=== PATIENT | male | born 1965 | race Caucasian/White ===

== ENCOUNTER 2021-11-02 14:05 | Inpatient (IN) | payer OTHER ==
[2021-11-02 14:24] VITALS: BMI 28.4
[2021-11-02] MEDS ORDERED: BETAMETHASONE DIPR 0.05% CREAM 15 GM TUBE TP SCH (15:00)
[2021-11-02] MEDS ORDERED: MAGNESIUM HYDROX 2400MG/30ML ORAL SUSPENSION 30 ML CUP PO PRN (15:01)
[2021-11-02] MEDS ORDERED: ACETAMINOPHEN 325 MG TABLET (FP) PO PRN (15:01)
[2021-11-02] MEDS ORDERED: IBUPROFEN 600 MG TABLET (FP) PO PRN (15:01)
[2021-11-02] MEDS ORDERED: BISMUTH SUBSALICYLATE 524 MG/30 ML PO PRN (15:01)
[2021-11-02] MEDS ORDERED: BENZOCAINE/MENTHOL (CHLORASEPTIC ) LOZENGE MM PRN (15:01)
[2021-11-02] MEDS ORDERED: LOPERAMIDE HCL 2 MG CAPSULE PO PRN (15:01)
[2021-11-02] MEDS ORDERED: ONDANSETRON *ODT* 4 MG TABLET SL PRN (15:01)
[2021-11-02] MEDS ORDERED: MAGNESIUM CITRATE 300 ML BOTTLE PO PRN (15:01)
[2021-11-02] MEDS ORDERED: MAG HYDROX/AL HYDROX/SIMETH 30 ML UNIT-DOSE CUP PO PRN (15:01)
[2021-11-02] MEDS ORDERED: DICYCLOMINE HCL 10 MG CAPSULE PO PRN (15:01)
[2021-11-02] MEDS ORDERED: methaDONE HCL 10 MG TABLET (FOR DETOX USE ONLY) PO ONE ×2 (15:05→19:30)
[2021-11-02] MEDS: METHOCARBAMOL 500 MG TABLET PO PRN (19:51)
[2021-11-02] MEDS: hydrOXYzine PAMOATE 25 MG CAPSULE (FP) PO PRN ×2 (19:51→22:34)
[2021-11-02] MEDS: cloNIDine HCL 0.1 MG TABLET PO PRN (19:51)
[2021-11-02] MEDS: MELATONIN 5 MG TABLETS PO PRN (22:34)
[2021-11-02] MEDS: THIAMINE HCL 100 MG TABLET (FP) PO SCH (22:34)
[2021-11-02] MEDS: BETAMETHASONE DIPR 0.05% CREAM 15 GM TUBE TP SCH (23:45)
[2021-11-02] MEDS: SALICYLIC ACID/SULFUR 1 APPLIC SHAMPOO.G. TP SCH (23:46)
[2021-11-03] MEDS: CHOLECALCIFEROL (VIT D3) 1,000 UNIT (25 MCG) TABLET PO SCH ×2 (00:10→10:19)
[2021-11-03] MEDS ORDERED: methaDONE HCL 10 MG TABLET (FOR DETOX USE ONLY) ONE (09:40)
[2021-11-03] MEDS: METHOCARBAMOL 500 MG TABLET PO PRN ×2 (10:18→18:26)
[2021-11-03] MEDS: hydrOXYzine PAMOATE 25 MG CAPSULE (FP) PO PRN ×2 (10:18→18:24)
[2021-11-03] MEDS: PRENATAL VITAMINS W/ FOLIC ACID TABLET (FP) PO SCH (10:18)
[2021-11-03] MEDS: BETAMETHASONE DIPR 0.05% CREAM 15 GM TUBE TP SCH ×2 (10:20→14:13)
[2021-11-03] MEDS: SALICYLIC ACID/SULFUR 1 APPLIC SHAMPOO.G. TP SCH (10:21)
[2021-11-03 11:56] LABS: HEMATOCRIT 43.2 % (35.4-49); HEMOGLOBIN 14.3 GM/dL (11.7-16.9); MCH 27.3 pg (25.7-33.7); MCHC 33.1 g/dl (32.0-35.9); MEAN CELL VOLUME 82.3 fl (80-96); PLATELET COUNT 195 10^3/uL (134-434); RBC 5.25 M/mm3 (4.00-5.60); RDW 14.1 % (11.9-15.9); WHITE BLOOD COUNT 6.3 K/mm3 (4.0-10.0)
[2021-11-03 11:59] LABS: CALCIUM 8.7 mg/dL (8.5-10.1)
[2021-11-03 12:00] LABS: ALBUMIN 3.3 g/dl (3.4-5.0); BLOOD UREA NITROGEN 18.2 mg/dL (7-18)
[2021-11-03 12:03] LABS: CREATININE 0.9 mg/dL (0.55-1.3)
[2021-11-03 12:04] LABS: TOT PROT 6.3 g/dl (6.4-8.2)
[2021-11-03 12:05] LABS: BILIRUBIN,TOTAL 0.3 mg/dL (0.2-1)
[2021-11-03] MEDS: IBUPROFEN 400 MG TABLET (FP) PO PRN ×2 (18:24→22:43)
[2021-11-03] MEDS: cloNIDine HCL 0.1 MG TABLET PO PRN ×2 (18:24→22:43)
[2021-11-03] MEDS: MELATONIN 5 MG TABLETS PO PRN (22:43)
[2021-11-03] MEDS: THIAMINE HCL 100 MG TABLET (FP) PO SCH (22:43)
[2021-11-04] MEDS: BETAMETHASONE DIPR 0.05% CREAM 15 GM TUBE TP SCH ×6 (00:41→22:34)
[2021-11-04] MEDS ORDERED: methaDONE HCL 10 MG TABLET (FOR DETOX USE ONLY) PO ONE (10:00)
[2021-11-04] MEDS: SALICYLIC ACID/SULFUR 1 APPLIC SHAMPOO.G. TP SCH (10:11)
[2021-11-04] MEDS: PRENATAL VITAMINS W/ FOLIC ACID TABLET (FP) PO SCH (10:12)
[2021-11-04] MEDS: HYDROCHLOROTHIAZIDE 12.5 MG CAPSULE (FP) PO SCH (10:12)
[2021-11-04] MEDS: amLODIPine BESYLATE 10 MG TABLET (FP) PO SCH (10:12)
[2021-11-04] MEDS: cloNIDine HCL 0.1 MG TABLET PO PRN (12:56)
[2021-11-04] MEDS: CHOLECALCIFEROL (VIT D3) 1,000 UNIT (25 MCG) TABLET PO SCH (14:25)
[2021-11-04] MEDS: METHOCARBAMOL 500 MG TABLET PO PRN (17:49)
[2021-11-04] MEDS: hydrOXYzine PAMOATE 25 MG CAPSULE (FP) PO PRN ×2 (17:49→22:34)
[2021-11-04] MEDS ORDERED: LOSARTAN POTASSIUM 50 MG TABLET PO ONE (22:00)
[2021-11-04] MEDS: THIAMINE HCL 100 MG TABLET (FP) PO SCH (22:34)
[2021-11-05] MEDS ORDERED: methaDONE HCL 10 MG TABLET (FOR DETOX USE ONLY) ONE (09:33)
[2021-11-05] MEDS: PRENATAL VITAMINS W/ FOLIC ACID TABLET (FP) PO SCH (10:03)
[2021-11-05] MEDS: hydrOXYzine PAMOATE 25 MG CAPSULE (FP) PO PRN ×3 (10:03→22:06)
[2021-11-05] MEDS: CHOLECALCIFEROL (VIT D3) 1,000 UNIT (25 MCG) TABLET PO SCH (10:03)
[2021-11-05] MEDS: amLODIPine BESYLATE 10 MG TABLET (FP) PO SCH (10:03)
[2021-11-05] MEDS: BETAMETHASONE DIPR 0.05% CREAM 15 GM TUBE TP SCH ×4 (10:04→22:06)
[2021-11-05] MEDS: METHOCARBAMOL 500 MG TABLET PO PRN ×2 (10:04→22:06)
[2021-11-05] MEDS: LOSARTAN POTASSIUM 50 MG TABLET PO SCH (10:04)
[2021-11-05] MEDS: SALICYLIC ACID/SULFUR 1 APPLIC SHAMPOO.G. TP SCH (10:28)
[2021-11-05] MEDS: HYDROCHLOROTHIAZIDE 12.5 MG CAPSULE (FP) PO SCH (10:39)
[2021-11-05] MEDS ORDERED: LISINOPRIL 10 MG TABLET PO ONE (15:15)
[2021-11-05] MEDS: ACETAMINOPHEN 325 MG TABLET (FP) PO PRN (18:04)
[2021-11-05] MEDS: THIAMINE HCL 100 MG TABLET (FP) PO SCH (22:06)
[2021-11-06] MEDS ORDERED: methaDONE HCL 10 MG TABLET (FOR DETOX USE ONLY) PO ONE (10:00)
[2021-11-06] MEDS: CHOLECALCIFEROL (VIT D3) 1,000 UNIT (25 MCG) TABLET PO SCH (10:18)
[2021-11-06] MEDS: METHOCARBAMOL 500 MG TABLET PO PRN (10:18)
[2021-11-06] MEDS: LOSARTAN POTASSIUM 50 MG TABLET PO SCH (10:18)
[2021-11-06] MEDS: hydrOXYzine PAMOATE 25 MG CAPSULE (FP) PO PRN (10:18)
[2021-11-06] MEDS: amLODIPine BESYLATE 10 MG TABLET (FP) PO SCH (10:18)
[2021-11-06] MEDS: PRENATAL VITAMINS W/ FOLIC ACID TABLET (FP) PO SCH (10:18)
[2021-11-06] MEDS: SALICYLIC ACID/SULFUR 1 APPLIC SHAMPOO.G. TP SCH (10:19)
[2021-11-06] MEDS: BETAMETHASONE DIPR 0.05% CREAM 15 GM TUBE TP SCH ×4 (10:21→21:29)
[2021-11-06] MEDS: ACETAMINOPHEN 325 MG TABLET (FP) PO PRN (10:24)
[2021-11-06] MEDS: HYDROCHLOROTHIAZIDE 12.5 MG CAPSULE (FP) PO SCH (12:13)
[2021-11-06] MEDS: THIAMINE HCL 100 MG TABLET (FP) PO SCH (21:27)
[2021-11-06] MEDS: MELATONIN 5 MG TABLETS PO PRN (21:27)
[2021-11-07 09:39] VITALS: BP 153/85; PULSE 67; TEMP 97.9
[2021-11-07] MEDS: HYDROCHLOROTHIAZIDE 12.5 MG CAPSULE (FP) PO SCH (09:43)
[2021-11-07] MEDS: PRENATAL VITAMINS W/ FOLIC ACID TABLET (FP) PO SCH (09:43)
[2021-11-07] MEDS: CHOLECALCIFEROL (VIT D3) 1,000 UNIT (25 MCG) TABLET PO SCH (09:43)
[2021-11-07] MEDS: BETAMETHASONE DIPR 0.05% CREAM 15 GM TUBE TP SCH (09:43)
[2021-11-07] MEDS: SALICYLIC ACID/SULFUR 1 APPLIC SHAMPOO.G. TP SCH (09:43)
[2021-11-07] MEDS: amLODIPine BESYLATE 10 MG TABLET (FP) PO SCH (09:43)
[2021-11-07] MEDS: LOSARTAN POTASSIUM 50 MG TABLET PO SCH (09:43)
[2021-11-07] MEDS: METHOCARBAMOL 500 MG TABLET PO PRN (09:44)
== END 2021-11-07 10:23 | disposition home or self-care (01) | DRG 773 ==
LOC: YASAS 14:05 → Y6N 17:40
PROVIDERS: ADMIT Allergy & Immunology; ATTEND Surgery
PROC: HZ2ZZZZ Detoxification Services for Substance Abuse Treatment (ICD-10-PCS; principal; 2021-11-02)
DX: F11.23 Opioid dependence with withdrawal (principal); F12.20 Cannabis dependence, uncomplicated; I10 Essential (primary) hypertension; B18.2 Chronic viral hepatitis C; L40.9 Psoriasis, unspecified; G89.29 Other chronic pain; M54.50 Low back pain, unspecified; M25.569 Pain in unspecified knee; M25.529 Pain in unspecified elbow; Z59.00 Homelessness unspecified
CPT/HCPCS: 36415; 80053; 82962; 85027; 86780; C9803-CS; J0735; U0003; U0005

== ENCOUNTER 2021-11-18 16:19 | Inpatient (IN) | payer OTHER ==
[2021-11-18 17:44] VITALS: BMI 27.9
[2021-11-18] MEDS ORDERED: ONDANSETRON *ODT* 4 MG TABLET SL PRN (19:14)
[2021-11-18] MEDS ORDERED: LOPERAMIDE HCL 2 MG CAPSULE PO PRN (19:14)
[2021-11-18] MEDS ORDERED: BENZOCAINE/MENTHOL (CHLORASEPTIC ) LOZENGE MM PRN (19:14)
[2021-11-18] MEDS ORDERED: MAG HYDROX/AL HYDROX/SIMETH 30 ML UNIT-DOSE CUP PO PRN (19:14)
[2021-11-18] MEDS ORDERED: MAGNESIUM HYDROX 2400MG/30ML ORAL SUSPENSION 30 ML CUP PO PRN (19:14)
[2021-11-18] MEDS ORDERED: BISMUTH SUBSALICYLATE 524 MG/30 ML PO PRN (19:14)
[2021-11-18] MEDS ORDERED: DICYCLOMINE HCL 10 MG CAPSULE PO PRN (19:14)
[2021-11-18] MEDS ORDERED: MAGNESIUM CITRATE 300 ML BOTTLE PO PRN (19:14)
[2021-11-18] MEDS ORDERED: NICOTINE 10 MG CARTRIDGE (INHALER) IH PRN (19:14)
[2021-11-18] MEDS ORDERED: ACETAMINOPHEN 325 MG TABLET (FP) PO PRN ×2 (19:14)
[2021-11-18] MEDS ORDERED: cloNIDine HCL 0.1 MG TABLET PO PRN (19:14)
[2021-11-18] MEDS ORDERED: IBUPROFEN 400 MG TABLET (FP) PO PRN (19:14)
[2021-11-18] MEDS ORDERED: LIDOCAINE 5% TOPICAL PATCH TP PRN (19:29)
[2021-11-18] MEDS ORDERED: methaDONE HCL 10 MG TABLET (FOR DETOX USE ONLY) PO ONE (20:00)
[2021-11-18] MEDS: LOSARTAN POTASSIUM 50 MG TABLET PO SCH (21:55)
[2021-11-18] MEDS: THIAMINE HCL 100 MG TABLET (FP) PO SCH (21:56)
[2021-11-18] MEDS: hydrOXYzine PAMOATE 25 MG CAPSULE (FP) PO SCH (21:56)
[2021-11-18] MEDS ORDERED: MELATONIN 5 MG TABLETS PO SCH (22:00)
[2021-11-18] MEDS: HYDROCHLOROTHIAZIDE 12.5 MG CAPSULE (FP) PO SCH (23:25)
[2021-11-18] MEDS: ROSUVASTATIN CA 20 MG TABLET PO SCH (23:25)
[2021-11-18] MEDS: CHOLECALCIFEROL (VIT D3) 1,000 UNIT (25 MCG) TABLET PO SCH (23:26)
[2021-11-18] MEDS: LIDOCAINE PATCH REMOVAL MC SCH (23:27)
[2021-11-18] MEDS: BETAMETHASONE DIPR 0.05% OINT 45 GM TUBE TP SCH (23:29)
[2021-11-19] MEDS: hydrOXYzine PAMOATE 25 MG CAPSULE (FP) PO SCH ×5 (07:13→22:18)
[2021-11-19] MEDS ORDERED: methaDONE HCL 10 MG TABLET (FOR DETOX USE ONLY) ONE (08:58)
[2021-11-19] MEDS: METHOCARBAMOL 500 MG TABLET PO PRN (10:07)
[2021-11-19] MEDS: PRENATAL VITAMINS W/ FOLIC ACID TABLET (FP) PO SCH (10:07)
[2021-11-19] MEDS: BETAMETHASONE DIPR 0.05% OINT 45 GM TUBE TP SCH ×2 (10:07→22:16)
[2021-11-19] MEDS: SALICYLIC ACID/SULFUR 1 APPLIC SHAMPOO.G. TP SCH (10:07)
[2021-11-19] MEDS: LOSARTAN POTASSIUM 50 MG TABLET PO SCH (10:07)
[2021-11-19] MEDS: CHOLECALCIFEROL (VIT D3) 1,000 UNIT (25 MCG) TABLET PO SCH (10:07)
[2021-11-19] MEDS: HYDROCHLOROTHIAZIDE 12.5 MG CAPSULE (FP) PO SCH (10:08)
[2021-11-19 10:51] LABS: HEMATOCRIT 42.2 % (35.4-49); HEMOGLOBIN 14.5 GM/dL (11.7-16.9); MCHC 34.3 g/dl (32.0-35.9); MEAN CELL VOLUME 81.5 fl (80-96); MEAN PLT VOLUME 7.8 fl (7.5-11.1); PLATELET COUNT 236 10^3/uL (134-434); RBC 5.18 M/mm3 (4.00-5.60); RDW 13.8 % (11.9-15.9); WHITE BLOOD COUNT 7.7 K/mm3 (4.0-10.0)
[2021-11-19 11:00] LABS: ALBUMIN 3.4 g/dl (3.4-5.0)
[2021-11-19 11:01] LABS: BLOOD UREA NITROGEN 17.1 mg/dL (7-18)
[2021-11-19 11:04] LABS: BILIRUBIN,TOTAL 0.6 mg/dL (0.2-1)
[2021-11-19 11:05] LABS: TOT PROT 6.4 g/dl (6.4-8.2)
[2021-11-19] MEDS: SUVOREXANT 10 MG TABLET PO PRN (22:16)
[2021-11-19] MEDS: ROSUVASTATIN CA 20 MG TABLET PO SCH (22:16)
[2021-11-19] MEDS: THIAMINE HCL 100 MG TABLET (FP) PO SCH (22:16)
[2021-11-19] MEDS: LIDOCAINE PATCH REMOVAL MC SCH (22:18)
[2021-11-20] MEDS: hydrOXYzine PAMOATE 25 MG CAPSULE (FP) PO SCH ×5 (05:44→22:06)
[2021-11-20] MEDS ORDERED: methaDONE HCL 10 MG TABLET (FOR DETOX USE ONLY) PO ONE (10:00)
[2021-11-20] MEDS: PRENATAL VITAMINS W/ FOLIC ACID TABLET (FP) PO SCH (10:23)
[2021-11-20] MEDS: HYDROCHLOROTHIAZIDE 12.5 MG CAPSULE (FP) PO SCH (10:23)
[2021-11-20] MEDS: SALICYLIC ACID/SULFUR 1 APPLIC SHAMPOO.G. TP SCH (10:24)
[2021-11-20] MEDS: CHOLECALCIFEROL (VIT D3) 1,000 UNIT (25 MCG) TABLET PO SCH (10:24)
[2021-11-20] MEDS: LOSARTAN POTASSIUM 50 MG TABLET PO SCH (10:24)
[2021-11-20] MEDS: BETAMETHASONE DIPR 0.05% OINT 45 GM TUBE TP SCH ×2 (10:26→23:20)
[2021-11-20] MEDS: METHOCARBAMOL 500 MG TABLET PO PRN (19:32)
[2021-11-20] MEDS: ROSUVASTATIN CA 20 MG TABLET PO SCH (22:06)
[2021-11-20] MEDS: THIAMINE HCL 100 MG TABLET (FP) PO SCH (22:06)
[2021-11-20] MEDS: SUVOREXANT 10 MG TABLET PO PRN (22:07)
[2021-11-20] MEDS: LIDOCAINE PATCH REMOVAL MC SCH (23:21)
[2021-11-21] MEDS: hydrOXYzine PAMOATE 25 MG CAPSULE (FP) PO SCH ×5 (06:00→22:23)
[2021-11-21] MEDS ORDERED: methaDONE HCL 10 MG TABLET (FOR DETOX USE ONLY) ONE (08:48)
[2021-11-21] MEDS: PRENATAL VITAMINS W/ FOLIC ACID TABLET (FP) PO SCH (10:29)
[2021-11-21] MEDS: CHOLECALCIFEROL (VIT D3) 1,000 UNIT (25 MCG) TABLET PO SCH (10:29)
[2021-11-21] MEDS: HYDROCHLOROTHIAZIDE 12.5 MG CAPSULE (FP) PO SCH (10:30)
[2021-11-21] MEDS: LOSARTAN POTASSIUM 50 MG TABLET PO SCH (10:30)
[2021-11-21] MEDS: BETAMETHASONE DIPR 0.05% OINT 45 GM TUBE TP SCH ×2 (10:32→22:24)
[2021-11-21] MEDS: SALICYLIC ACID/SULFUR 1 APPLIC SHAMPOO.G. TP SCH (10:32)
[2021-11-21] MEDS: IBUPROFEN 600 MG TABLET (FP) PO PRN (13:13)
[2021-11-21] MEDS: METHOCARBAMOL 500 MG TABLET PO PRN (13:13)
[2021-11-21] MEDS: THIAMINE HCL 100 MG TABLET (FP) PO SCH (22:23)
[2021-11-21] MEDS: SUVOREXANT 10 MG TABLET PO PRN (22:23)
[2021-11-21] MEDS: LIDOCAINE PATCH REMOVAL MC SCH (22:24)
[2021-11-21] MEDS: ROSUVASTATIN CA 20 MG TABLET PO SCH (23:49)
[2021-11-22] MEDS: hydrOXYzine PAMOATE 25 MG CAPSULE (FP) PO SCH ×5 (05:50→22:11)
[2021-11-22] MEDS ORDERED: methaDONE HCL 10 MG TABLET (FOR DETOX USE ONLY) PO ONE (10:00)
[2021-11-22] MEDS: SALICYLIC ACID/SULFUR 1 APPLIC SHAMPOO.G. TP SCH (10:35)
[2021-11-22] MEDS: PRENATAL VITAMINS W/ FOLIC ACID TABLET (FP) PO SCH (10:35)
[2021-11-22] MEDS: LOSARTAN POTASSIUM 50 MG TABLET PO SCH (10:36)
[2021-11-22] MEDS: BETAMETHASONE DIPR 0.05% OINT 45 GM TUBE TP SCH ×2 (10:36→22:12)
[2021-11-22] MEDS: CHOLECALCIFEROL (VIT D3) 1,000 UNIT (25 MCG) TABLET PO SCH (10:36)
[2021-11-22] MEDS: HYDROCHLOROTHIAZIDE 12.5 MG CAPSULE (FP) PO SCH (10:37)
[2021-11-22] MEDS: METHOCARBAMOL 500 MG TABLET PO PRN (17:51)
[2021-11-22] MEDS: IBUPROFEN 600 MG TABLET (FP) PO PRN (17:51)
[2021-11-22] MEDS ORDERED: SUVOREXANT 10 MG TABLET PO PRN (22:00)
[2021-11-22] MEDS: LIDOCAINE PATCH REMOVAL MC SCH (22:12)
[2021-11-22] MEDS: ROSUVASTATIN CA 20 MG TABLET PO SCH (22:12)
[2021-11-22] MEDS: THIAMINE HCL 100 MG TABLET (FP) PO SCH (22:12)
[2021-11-23] MEDS: hydrOXYzine PAMOATE 25 MG CAPSULE (FP) PO SCH ×2 (05:21→10:24)
[2021-11-23 09:20] VITALS: BP 151/82; PULSE 66; TEMP 97.7
[2021-11-23] MEDS: LOSARTAN POTASSIUM 50 MG TABLET PO SCH (10:23)
[2021-11-23] MEDS: PRENATAL VITAMINS W/ FOLIC ACID TABLET (FP) PO SCH (10:23)
[2021-11-23] MEDS: HYDROCHLOROTHIAZIDE 12.5 MG CAPSULE (FP) PO SCH (10:23)
[2021-11-23] MEDS: SALICYLIC ACID/SULFUR 1 APPLIC SHAMPOO.G. TP SCH (10:24)
[2021-11-23] MEDS: BETAMETHASONE DIPR 0.05% OINT 45 GM TUBE TP SCH (10:24)
[2021-11-23] MEDS: CHOLECALCIFEROL (VIT D3) 1,000 UNIT (25 MCG) TABLET PO SCH (10:24)
== END 2021-11-23 12:28 | disposition other institution (70) | DRG 773 ==
LOC: YASAS 16:19 → Y6N 19:42
PROVIDERS: ADMIT Allergy & Immunology; ATTEND Surgery
PROC: HZ2ZZZZ Detoxification Services for Substance Abuse Treatment (ICD-10-PCS; principal; 2021-11-18)
DX: F11.23 Opioid dependence with withdrawal (principal); F12.20 Cannabis dependence, uncomplicated; F19.24 Other psychoactive substance dependence with psychoactive substance-induced mood disorder; F19.282 Other psychoactive substance dependence with psychoactive substance-induced sleep disorder; F19.280 Other psychoactive substance dependence with psychoactive substance-induced anxiety disorder; I10 Essential (primary) hypertension; E78.5 Hyperlipidemia, unspecified; M54.59 Other low back pain; G89.29 Other chronic pain; L40.0 Psoriasis vulgaris; B18.2 Chronic viral hepatitis C; Z87.891 Personal history of nicotine dependence; Z59.00 Homelessness unspecified
CPT/HCPCS: 36415; 80053; 85027; 86780; C9803-CS; Q0162; U0003; U0005

== ENCOUNTER 2021-11-23 12:46 | Inpatient (IN) | payer OTHER ==
[2021-11-23] MEDS ORDERED: LOPERAMIDE HCL 2 MG CAPSULE PO PRN (16:39)
[2021-11-23] MEDS ORDERED: ACETAMINOPHEN 325 MG TABLET (FP) PO PRN (16:39)
[2021-11-23] MEDS ORDERED: MAG HYDROX/AL HYDROX/SIMETH 30 ML UNIT-DOSE CUP PO PRN (16:39)
[2021-11-23] MEDS ORDERED: MAGNESIUM HYDROX 2400MG/30ML ORAL SUSPENSION 30 ML CUP PO PRN (16:39)
[2021-11-23] MEDS ORDERED: MAGNESIUM CITRATE 300 ML BOTTLE PO PRN (16:39)
[2021-11-23] MEDS ORDERED: P-EPHED 60MG/TRIPROLIDI 2.5MG TABLET PO PRN (16:39)
[2021-11-23] MEDS ORDERED: NICOTINE 10 MG CARTRIDGE (INHALER) IH PRN (16:39)
[2021-11-23] MEDS ORDERED: BENZOCAINE/MENTHOL (CHLORASEPTIC ) LOZENGE MM PRN (16:39)
[2021-11-23] MEDS ORDERED: guaiFENesin 200 MG/10 ML 10 ML UNIT-DOSE CUPS PO PRN (16:39)
[2021-11-23] MEDS: hydrOXYzine PAMOATE 25 MG CAPSULE (FP) PO SCH ×2 (17:43→21:10)
[2021-11-23] MEDS: ROSUVASTATIN CA 20 MG TABLET PO SCH (21:09)
[2021-11-23] MEDS: MELATONIN 5 MG TABLETS PO SCH (21:10)
[2021-11-23] MEDS: THIAMINE HCL 100 MG TABLET (FP) PO SCH (21:10)
[2021-11-23] MEDS: BETAMETHASONE DIPR 0.05% OINT 45 GM TUBE TP SCH (21:10)
[2021-11-24] MEDS: hydrOXYzine PAMOATE 25 MG CAPSULE (FP) PO SCH ×5 (06:38→21:17)
[2021-11-24] MEDS: CHOLECALCIFEROL (VIT D3) 1,000 UNIT (25 MCG) TABLET PO SCH (09:57)
[2021-11-24] MEDS: LOSARTAN POTASSIUM 50 MG TABLET PO SCH (09:58)
[2021-11-24] MEDS: PRENATAL VITAMINS W/ FOLIC ACID TABLET (FP) PO SCH (09:58)
[2021-11-24] MEDS: HYDROCHLOROTHIAZIDE 12.5 MG CAPSULE (FP) PO SCH (09:59)
[2021-11-24] MEDS: NICOTINE 7 MG/24 HOURS TOPICAL PATCH TD SCH (10:00)
[2021-11-24] MEDS: BETAMETHASONE DIPR 0.05% OINT 45 GM TUBE TP SCH ×2 (10:00→21:20)
[2021-11-24] MEDS: IBUPROFEN 400 MG TABLET (FP) PO PRN (14:07)
[2021-11-24] MEDS: SALICYLIC ACID/SULFUR 1 APPLIC SHAMPOO.G. TP SCH (16:28)
[2021-11-24] MEDS: ROSUVASTATIN CA 20 MG TABLET PO SCH (21:17)
[2021-11-24] MEDS: THIAMINE HCL 100 MG TABLET (FP) PO SCH (21:17)
[2021-11-24] MEDS: MELATONIN 5 MG TABLETS PO SCH (21:18)
[2021-11-25] MEDS: hydrOXYzine PAMOATE 25 MG CAPSULE (FP) PO SCH ×2 (07:14→09:52)
[2021-11-25] MEDS: PRENATAL VITAMINS W/ FOLIC ACID TABLET (FP) PO SCH (09:49)
[2021-11-25] MEDS: CHOLECALCIFEROL (VIT D3) 1,000 UNIT (25 MCG) TABLET PO SCH (09:49)
[2021-11-25] MEDS: LOSARTAN POTASSIUM 50 MG TABLET PO SCH (09:50)
[2021-11-25] MEDS: NICOTINE 7 MG/24 HOURS TOPICAL PATCH TD SCH (09:50)
[2021-11-25] MEDS: HYDROCHLOROTHIAZIDE 12.5 MG CAPSULE (FP) PO SCH (09:50)
[2021-11-25] MEDS: BETAMETHASONE DIPR 0.05% OINT 45 GM TUBE TP SCH ×2 (09:51→21:19)
[2021-11-25] MEDS: SALICYLIC ACID/SULFUR 1 APPLIC SHAMPOO.G. TP SCH (09:51)
[2021-11-25] MEDS: IBUPROFEN 400 MG TABLET (FP) PO PRN ×2 (09:52→21:21)
[2021-11-25] MEDS: hydrOXYzine PAMOATE 25 MG CAPSULE (FP) PO PRN (21:19)
[2021-11-25] MEDS: MELATONIN 5 MG TABLETS PO SCH (21:19)
[2021-11-25] MEDS: THIAMINE HCL 100 MG TABLET (FP) PO SCH (21:19)
[2021-11-25] MEDS: ROSUVASTATIN CA 20 MG TABLET PO SCH (22:58)
[2021-11-26] MEDS: NICOTINE 7 MG/24 HOURS TOPICAL PATCH TD SCH (10:20)
[2021-11-26] MEDS: PRENATAL VITAMINS W/ FOLIC ACID TABLET (FP) PO SCH (10:20)
[2021-11-26] MEDS: HYDROCHLOROTHIAZIDE 12.5 MG CAPSULE (FP) PO SCH (10:21)
[2021-11-26] MEDS: LOSARTAN POTASSIUM 50 MG TABLET PO SCH (10:21)
[2021-11-26] MEDS: CHOLECALCIFEROL (VIT D3) 1,000 UNIT (25 MCG) TABLET PO SCH (10:22)
[2021-11-26] MEDS: BETAMETHASONE DIPR 0.05% OINT 45 GM TUBE TP SCH ×2 (10:23→21:06)
[2021-11-26] MEDS: SALICYLIC ACID/SULFUR 1 APPLIC SHAMPOO.G. TP SCH (10:23)
[2021-11-26] MEDS: hydrOXYzine PAMOATE 25 MG CAPSULE (FP) PO PRN ×4 (10:24→21:06)
[2021-11-26] MEDS: IBUPROFEN 400 MG TABLET (FP) PO PRN (19:01)
[2021-11-26] MEDS: ROSUVASTATIN CA 20 MG TABLET PO SCH (21:06)
[2021-11-26] MEDS: MELATONIN 5 MG TABLETS PO SCH (21:06)
[2021-11-26] MEDS: THIAMINE HCL 100 MG TABLET (FP) PO SCH (21:06)
[2021-11-27] MEDS: PRENATAL VITAMINS W/ FOLIC ACID TABLET (FP) PO SCH (09:34)
[2021-11-27] MEDS: BETAMETHASONE DIPR 0.05% OINT 45 GM TUBE TP SCH ×2 (09:34→21:23)
[2021-11-27] MEDS: NICOTINE 7 MG/24 HOURS TOPICAL PATCH TD SCH (09:34)
[2021-11-27] MEDS: hydrOXYzine PAMOATE 25 MG CAPSULE (FP) PO PRN ×2 (09:34→13:31)
[2021-11-27] MEDS: LOSARTAN POTASSIUM 50 MG TABLET PO SCH (09:34)
[2021-11-27] MEDS: SALICYLIC ACID/SULFUR 1 APPLIC SHAMPOO.G. TP SCH (09:35)
[2021-11-27] MEDS: HYDROCHLOROTHIAZIDE 12.5 MG CAPSULE (FP) PO SCH (09:35)
[2021-11-27] MEDS: CHOLECALCIFEROL (VIT D3) 1,000 UNIT (25 MCG) TABLET PO SCH (09:38)
[2021-11-27] MEDS: ASPIRIN 81 MG CHEWABLE TABLETS PO SCH (14:14)
[2021-11-27] MEDS: IBUPROFEN 400 MG TABLET (FP) PO PRN (14:14)
[2021-11-27] MEDS: hydrOXYzine PAMOATE 50 MG CAPSULE (FP) PO PRN ×2 (17:55→21:23)
[2021-11-27] MEDS: ROSUVASTATIN CA 20 MG TABLET PO SCH (21:23)
[2021-11-27] MEDS: MELATONIN 5 MG TABLETS PO SCH (21:23)
[2021-11-27] MEDS: THIAMINE HCL 100 MG TABLET (FP) PO SCH (21:23)
[2021-11-28] MEDS: PRENATAL VITAMINS W/ FOLIC ACID TABLET (FP) PO SCH (09:52)
[2021-11-28] MEDS: LOSARTAN POTASSIUM 50 MG TABLET PO SCH (09:53)
[2021-11-28] MEDS: HYDROCHLOROTHIAZIDE 12.5 MG CAPSULE (FP) PO SCH (09:53)
[2021-11-28] MEDS: ASPIRIN 81 MG CHEWABLE TABLETS PO SCH (09:53)
[2021-11-28] MEDS: BETAMETHASONE DIPR 0.05% OINT 45 GM TUBE TP SCH ×2 (09:53→21:17)
[2021-11-28] MEDS: NICOTINE 7 MG/24 HOURS TOPICAL PATCH TD SCH (09:54)
[2021-11-28] MEDS: CHOLECALCIFEROL (VIT D3) 1,000 UNIT (25 MCG) TABLET PO SCH (09:55)
[2021-11-28] MEDS: hydrOXYzine PAMOATE 50 MG CAPSULE (FP) PO PRN ×4 (09:56→22:53)
[2021-11-28] MEDS: SALICYLIC ACID/SULFUR 1 APPLIC SHAMPOO.G. TP SCH (09:59)
[2021-11-28] MEDS: MELATONIN 5 MG TABLETS PO SCH (21:17)
[2021-11-28] MEDS: ROSUVASTATIN CA 20 MG TABLET PO SCH (21:17)
[2021-11-28] MEDS: THIAMINE HCL 100 MG TABLET (FP) PO SCH (21:17)
[2021-11-29 07:08] VITALS: TEMP 97.7
[2021-11-29] MEDS: PRENATAL VITAMINS W/ FOLIC ACID TABLET (FP) PO SCH (09:26)
[2021-11-29] MEDS: CHOLECALCIFEROL (VIT D3) 1,000 UNIT (25 MCG) TABLET PO SCH (09:26)
[2021-11-29] MEDS: HYDROCHLOROTHIAZIDE 12.5 MG CAPSULE (FP) PO SCH (09:27)
[2021-11-29] MEDS: ASPIRIN 81 MG CHEWABLE TABLETS PO SCH (09:27)
[2021-11-29] MEDS: LOSARTAN POTASSIUM 50 MG TABLET PO SCH (09:27)
[2021-11-29] MEDS: NICOTINE 7 MG/24 HOURS TOPICAL PATCH TD SCH (09:28)
[2021-11-29] MEDS: BETAMETHASONE DIPR 0.05% OINT 45 GM TUBE TP SCH (09:28)
[2021-11-29] MEDS: SALICYLIC ACID/SULFUR 1 APPLIC SHAMPOO.G. TP SCH (09:28)
[2021-11-29] MEDS: hydrOXYzine PAMOATE 50 MG CAPSULE (FP) PO PRN (09:30)
[2021-11-29 11:06] VITALS: BP 140/85; PULSE 84
== END 2021-11-29 10:40 | disposition home or self-care (01) | DRG 772 ==
LOC: YASAS 12:46 → Y5N 12:51
PROVIDERS: ADMIT Allergy & Immunology; ATTEND Psychiatry & Neurology Pain Medicine
PROC: HZ42ZZZ Group Counseling for Substance Abuse Treatment, Cognitive-Behavioral (ICD-10-PCS; principal; 2021-11-23)
DX: F11.20 Opioid dependence, uncomplicated (principal); F12.20 Cannabis dependence, uncomplicated; F19.282 Other psychoactive substance dependence with psychoactive substance-induced sleep disorder; F19.280 Other psychoactive substance dependence with psychoactive substance-induced anxiety disorder; F19.24 Other psychoactive substance dependence with psychoactive substance-induced mood disorder; I10 Essential (primary) hypertension; E78.5 Hyperlipidemia, unspecified; B18.2 Chronic viral hepatitis C; L30.8 Other specified dermatitis; Z87.891 Personal history of nicotine dependence

== ENCOUNTER 2024-10-31 20:39 | Inpatient (IN) | payer OTHER ==
[2024-10-31 21:38] VITALS: BMI 18.9
[2024-10-31] MEDS ORDERED: guaiFENesin 600 MG TABLET.ER (FP) PO PRN (23:03)
[2024-10-31] MEDS ORDERED: DICYCLOMINE HCL 10 MG CAPSULE PO PRN (23:03)
[2024-10-31] MEDS ORDERED: P-EPHED 60MG/TRIPROLIDI 2.5MG TABLET PO PRN (23:03)
[2024-10-31] MEDS ORDERED: ACETAMINOPHEN 325 MG TABLET (FP) PO PRN (23:03)
[2024-10-31] MEDS ORDERED: LOPERAMIDE HCL 2 MG CAPSULE PO PRN (23:03)
[2024-10-31] MEDS ORDERED: IBUPROFEN 400 MG TABLET (FP) PO PRN (23:03)
[2024-10-31] MEDS ORDERED: NALOXONE (NARCAN) HCL 4 MG/0.1 ML SPRAY NS PRN (23:03)
[2024-10-31] MEDS ORDERED: MAGNESIUM HYDROX 2400MG/30ML ORAL SUSPENSION 30 ML CUP PO PRN (23:03)
[2024-10-31] MEDS ORDERED: NICOTINE POLACRILEX 2 MG LOZENGE BC PRN (23:03)
[2024-10-31] MEDS ORDERED: IBUPROFEN 600 MG TABLET (FP) PO PRN (23:03)
[2024-10-31] MEDS ORDERED: BISMUTH SUBSALICYLATE 524 MG/30 ML PO PRN (23:03)
[2024-10-31] MEDS ORDERED: POLYETHYLENE GLYCOL (HEALTHYLAX) 3350 17 GM PACKET PO PRN (23:03)
[2024-10-31] MEDS ORDERED: MAG HYDROX/AL HYDROX/SIMETH 30 ML UNIT-DOSE CUP PO PRN (23:03)
[2024-10-31] MEDS ORDERED: NICOTINE POLACRILEX 2 MG GUM BUC PRN (23:03)
[2024-10-31] MEDS ORDERED: BENZONATATE 200 MG CAPSULE PO PRN (23:03)
[2024-10-31] MEDS ORDERED: BENZOCAINE/MENTHOL (CHLORASEPTIC ) LOZENGE MM PRN (23:03)
[2024-10-31] MEDS ORDERED: BUPRENORPHINE/NALOXONE 4 MG/1 MG FILM PACKET ONE (23:54)
[2024-10-31] MEDS: BUPRENORPHINE/NALOXONE 4 MG/1 MG FILM PACKET SL ONE (23:59)
[2024-11-01] MEDS: LOSARTAN POTASSIUM 50 MG TABLET PO ONE ×2 (01:31→01:50)
[2024-11-01] MEDS: ONDANSETRON *ODT* 4 MG TABLET SL PRN (02:40)
[2024-11-01] MEDS: BUPRENORPHINE/NALOXONE 4 MG/1 MG FILM PACKET SL SCH (05:41)
[2024-11-01] MEDS: PRENATAL VITAMINS W/ FOLIC ACID TABLET (FP) PO SCH (09:38)
[2024-11-01 11:32] LABS: HEMATOCRIT 52.9 % (40.1-51.0); HEMOGLOBIN 17.4 g/dL (13.7-17.5); MCHC 32.9 g/dl (32.3-36.5); MEAN CELL VOLUME 80.3 fl (79.0-92.2); MEAN PLT VOLUME 10.5 fl (9.4-12.4); PLATELET COUNT 229 x10^3/uL (163-337); RDW 13.8 % (12.2-16.1)
[2024-11-01 11:34] LABS: POTASSIUM 5.1 mmol/L (3.5-5.1)
[2024-11-01 11:37] LABS: ALBUMIN 3.6 g/dl (3.4-5.0)
[2024-11-01 11:41] LABS: CREATININE 0.8 mg/dL (0.55-1.3)
[2024-11-01 11:42] LABS: BILIRUBIN,TOTAL 1.3 mg/dL (0.2-1); TOT PROT 7.5 g/dl (6.4-8.2)
[2024-11-01] MEDS: HYDROCHLOROTHIAZIDE 12.5 MG CAPSULE (FP) PO SCH (13:59)
[2024-11-01] MEDS: LOSARTAN POTASSIUM 50 MG TABLET PO SCH (14:00)
[2024-11-01] MEDS: METHOCARBAMOL 500 MG TABLET PO PRN (21:25)
[2024-11-01] MEDS: cloNIDine HCL 0.1 MG TABLET PO PRN (21:25)
[2024-11-01] MEDS: THIAMINE 100 MG TABLET PO SCH (21:25)
[2024-11-01] MEDS: MELATONIN 5 MG TABLETS PO SCH (21:26)
[2024-11-01] MEDS: ROSUVASTATIN CA 20 MG TABLET PO SCH (21:26)
[2024-11-02] MEDS: BUPRENORPHINE/NALOXONE 8 MG/2 MG FILM PACKET SL ONE (05:52)
[2024-11-02] MEDS: ASPIRIN 81 MG CHEWABLE TABLETS PO SCH (09:55)
[2024-11-03] MEDS: BUPRENORPHINE/NALOXONE 8 MG/2 MG FILM PACKET SL ONE (09:19)
[2024-11-03 13:01] VITALS: BP 140/92; PULSE 74; RESP 16; TEMP 97.8
[2024-11-03] MEDS ORDERED: SUVOREXANT 10 MG TABLET PO PRN (22:00)
== END 2024-11-03 15:20 | disposition other institution (70) | DRG 773 ==
LOC: YASAS 20:39 → Y6N 23:53
PROVIDERS: ADMIT Family Medicine; ATTEND Family Medicine
PROC: HZ2ZZZZ Detoxification Services for Substance Abuse Treatment (ICD-10-PCS; principal; 2024-10-31)
DX: F11.23 Opioid dependence with withdrawal (principal); F14.20 Cocaine dependence, uncomplicated; F12.20 Cannabis dependence, uncomplicated; F17.210 Nicotine dependence, cigarettes, uncomplicated; F19.282 Other psychoactive substance dependence with psychoactive substance-induced sleep disorder; I10 Essential (primary) hypertension; E78.5 Hyperlipidemia, unspecified; M54.50 Low back pain, unspecified; G89.29 Other chronic pain; L30.8 Other specified dermatitis; B18.2 Chronic viral hepatitis C; Z59.00 Homelessness unspecified
CPT/HCPCS: 36415; 80053; 80305; 85027; 86780; 93005; 93010; Q0162

== ENCOUNTER 2024-11-03 16:36 | Inpatient (IN) | payer OTHER ==
[2024-11-03] MEDS ORDERED: IBUPROFEN 400 MG TABLET (FP) PO PRN (17:49)
[2024-11-03] MEDS ORDERED: BENZONATATE 200 MG CAPSULE PO PRN (17:49)
[2024-11-03] MEDS ORDERED: MAG HYDROX/AL HYDROX/SIMETH 30 ML UNIT-DOSE CUP PO PRN (17:49)
[2024-11-03] MEDS ORDERED: MAGNESIUM HYDROX 2400MG/30ML ORAL SUSPENSION 30 ML CUP PO PRN (17:49)
[2024-11-03] MEDS ORDERED: NALOXONE HCL 0.4 MG/ML VIAL IVPUSH PRN (17:49)
[2024-11-03] MEDS ORDERED: LOPERAMIDE HCL 2 MG CAPSULE PO PRN (17:49)
[2024-11-03] MEDS ORDERED: ACETAMINOPHEN 325 MG TABLET (FP) PO PRN (17:49)
[2024-11-03] MEDS ORDERED: NALOXONE (NARCAN) HCL 4 MG/0.1 ML SPRAY NS PRN (17:49)
[2024-11-03] MEDS ORDERED: guaiFENesin 600 MG TABLET.ER (FP) PO PRN (17:49)
[2024-11-03] MEDS: ONDANSETRON *ODT* 4 MG TABLET SL ONE (18:13)
[2024-11-03] MEDS: BUPRENORPHINE/NALOXONE 8 MG/2 MG FILM PACKET SL SCH (22:14)
[2024-11-03] MEDS: METHOCARBAMOL 500 MG TABLET PO PRN (22:14)
[2024-11-03] MEDS: THIAMINE 100 MG TABLET PO SCH (22:18)
[2024-11-03] MEDS: MELATONIN 5 MG TABLETS PO SCH (22:18)
[2024-11-03] MEDS: ROSUVASTATIN CA 20 MG TABLET PO SCH (22:18)
[2024-11-04] MEDS: IBUPROFEN 600 MG TABLET (FP) PO PRN (00:40)
[2024-11-04] MEDS: hydrOXYzine PAMOATE 25 MG CAPSULE (FP) PO PRN (00:40)
[2024-11-04] MEDS: PRENATAL VITAMINS W/ FOLIC ACID TABLET (FP) PO SCH (10:38)
[2024-11-04] MEDS: ASPIRIN 81 MG CHEWABLE TABLETS PO SCH (10:39)
[2024-11-04] MEDS: HYDROCHLOROTHIAZIDE 12.5 MG CAPSULE (FP) PO SCH (10:39)
[2024-11-04] MEDS: LOSARTAN POTASSIUM 50 MG TABLET PO SCH (10:39)
[2024-11-04] MEDS: POLYETHYLENE GLYCOL (HEALTHYLAX) 3350 17 GM PACKET PO PRN (17:10)
[2024-11-05] MEDS: BETAMETHASONE DIP 0.05% TP LOTION 30 ML BOTTLE TP SCH (14:09)
[2024-11-05] MEDS ORDERED: ROSUVASTATIN CA 10 MG TABLET ONE (20:08)
[2024-11-06] MEDS: ONDANSETRON *ODT* 4 MG TABLET SL ONE (08:09)
[2024-11-06] MEDS ORDERED: ROSUVASTATIN CA 10 MG TABLET ONE (21:02)
[2024-11-07] MEDS ORDERED: ROSUVASTATIN CA 10 MG TABLET ONE (19:54)
[2024-11-08] MEDS: BENZOCAINE/MENTHOL (CHLORASEPTIC ) LOZENGE MM PRN (06:09)
[2024-11-08] MEDS: SUVOREXANT 10 MG TABLET PO PRN (21:28)
[2024-11-10] MEDS: BUPRENORPHINE/NALOXONE 8 MG/2 MG FILM PACKET SL SCH (21:20)
[2024-11-13] MEDS: SUVOREXANT 10 MG TABLET PO PRN (21:59)
[2024-11-16] MEDS ORDERED: SUVOREXANT 10 MG TABLET PO PRN (22:00)
[2024-11-18] MEDS: BUPRENORPHINE/NALOXONE 8 MG/2 MG FILM PACKET SL SCH (09:43)
[2024-11-18] MEDS ORDERED: SUVOREXANT 10 MG TABLET PO PRN (22:00)
[2024-11-19] MEDS ORDERED: MELATONIN 5 MG TABLETS PO PRN (22:00)
[2024-11-30 06:26] VITALS: RESP 18; TEMP 97.5
[2024-11-30 09:03] VITALS: BP 119/71; PULSE 88
== END 2024-11-30 09:40 | disposition home or self-care (01) | DRG 772 ==
LOC: YASAS 16:36 → Y3NR 16:39 → Y3E 11-05 11:04
PROVIDERS: ADMIT Psychiatry & Neurology Pain Medicine; ATTEND Psychiatry & Neurology Pain Medicine
PROC: HZ42ZZZ Group Counseling for Substance Abuse Treatment, Cognitive-Behavioral (ICD-10-PCS; principal; 2024-11-03)
DX: F10.20 Alcohol dependence, uncomplicated (principal); F14.20 Cocaine dependence, uncomplicated; F12.20 Cannabis dependence, uncomplicated; F17.210 Nicotine dependence, cigarettes, uncomplicated; F19.280 Other psychoactive substance dependence with psychoactive substance-induced anxiety disorder; F19.282 Other psychoactive substance dependence with psychoactive substance-induced sleep disorder; F19.24 Other psychoactive substance dependence with psychoactive substance-induced mood disorder; F32.A Depression, unspecified; F41.9 Anxiety disorder, unspecified; I10 Essential (primary) hypertension; E78.5 Hyperlipidemia, unspecified; L30.8 Other specified dermatitis; M54.50 Low back pain, unspecified; G89.29 Other chronic pain; Z86.19 Personal history of other infectious and parasitic diseases; Z59.00 Homelessness unspecified
CPT/HCPCS: 36415; 82962; 86803; 87522; Q0162